=== PATIENT | male | born 1995 | race Caucasian/White ===

== ENCOUNTER 2023-03-24 16:40 | Emergency (ER) | payer OTHER, SELFPAY ==
[2023-03-24 16:55] VITALS: BP 119/74; PULSE 78; RESP 12; TEMP 37.1; O2SAT 100
--- NOTE | 2023-03-24 17:06 | ED.SKABFB ---
HPI - Skin/Abscess/Foreign Bdy General Chief complaint: Skin/Abscess/Foreign Body Stated complaint: Rash/Ankle,Knee Swelling Time Seen by Provider: 03/24/23 17:06 Source: patient Mode of arrival: ambulatory Limitations: no limitations History of Present Illness HPI narrative: 27-year-old male presents with complaint of poison martha to right forearm, left ankle and posterior right knee for the last 4-5 days. reports rash to left ankle is painful, swollen and red. Draining fluid. Has been applying an anti-itch cream to poison martha rash. All systems reviewed and negative except as noted above. Related Data Allergies Allergy/AdvReac Type Severity Reaction Status Date / Time No Known Allergies Allergy Verified 03/24/23 17:10 Review of Systems Review of Systems: CONSTITUTIONAL: Denies fever, chills, or sweats. EYES: Denies visual changes, redness, or discharge. ENT: Denies rhinorrhea, congestion, sore throat, or otalgia. CARDIOVASCULAR: Denies chest pain, palpitations, or edema. RESPIRATORY: Denies cough or dyspnea. GASTROINTESTINAL: Denies abdominal pain, nausea, vomiting, or diarrhea. GENITOURINARY: Denies dysuria or hematuria. SKIN: Reports poison martha rash with itching. MUSCULOSKELETAL: Denies back pain, joint pain, or myalgia. NEUROLOGIC: Denies headache, numbness, or weakness. PSYCHIATRIC: Denies anxiety or depression. All other systems reviewed are negative, except as documented in HPI. PMFSH Comments At time of signature, agree with nursing past medical, surgical, social and family history. There is no relevant family history pertinent to the presenting complaint. Exam Narrative: GENERAL: This is a well-nourished, well-developed patient, in no apparent distress. HEAD: normocephalic, atraumatic. EYES: PERRL. Sclera clear/white. Vision is grossly intact. EARS: External ears normal NOSE: External nose normal NECK: Neck supple, non-tender without lymphadenopathy, masses or thyromegaly. CARDIOVASCULAR: Regular rate and rhythm without murmurs, gallops, or rubs. RESPIRATORY: Clear to auscultation. Breath sounds equal bilaterally. No wheezes, rales, or rhonchi. SKIN: warm, Dry, intact , good texture and turgor. erythematous vesicular rash to L ankle, R forearm, R posterior knee. rash to L ankle is swollen, erythematous and warm to touch. Drainage serous fluid. erythema concerning for cellulitis. NEURO: awake, alert, and oriented to person, place and time. There were no obvious focal neurologic abnormalities. EXTREMITIES: No joint tenderness, effusion, or edema noted. Course Course Level of Care: Express Care Visit Vital Signs Vital signs: Vital Signs Temperature 37.1 C 03/24/23 16:55 Pulse Rate 78 03/24/23 16:55 Respiratory Rate 12 03/24/23 16:55 Blood Pressure 119/74 03/24/23 16:55 Pulse Oximetry 100 03/24/23 16:55 Temperature 37.1 C 03/24/23 16:55 Pulse Rate 78 03/24/23 16:55 Respiratory Rate 12 03/24/23 16:55 Blood Pressure 119/74 03/24/23 16:55 Pulse Oximetry 100 03/24/23 16:55 Reviewed MDM - Skin/Abscess/Foreign Bdy MDM Narrative Medical decision making narrative: Patient is aware of diagnosis, understands and agrees to treatment plan. Anticipatory guidance given. Patient agrees to follow-up as directed and is aware of reasons to seek care at the emergency department. Portions of this record may have been created with voice recognition software Differential Diagnosis Differential diagnosis: Likely cellulitis and other (poison martha) Discharge Plan Discharge Clinical Impression: Dermatitis due to plants, including poison martha, sumac, and oak, Cellulitis of left ankle Patient Disposition: Home, Self-Care Condition: Stable Instructions: Antibiotic Form, Cellulitis (ED), Poison Martha (ED) Additional Instructions: take medications as prescribed. Take antibiotic as prescribed until gone. Avoid scratching to prevent further infect
== END 2023-03-24 17:26 | disposition home or self-care (01) ==
PROVIDERS: Emergency Provider Nurse Practitioner Family
DX: L25.5 Unspecified contact dermatitis due to plants, except food (principal); L03.116 Cellulitis of left lower limb
CPT/HCPCS: 99203; G0463

== ENCOUNTER 2024-01-10 10:39 | Emergency (ER) | payer OTHER, SELFPAY ==
[2024-01-10 10:49] VITALS: BP 125/63; PULSE 67; RESP 20; TEMP 36.3; O2SAT 100
--- NOTE | 2024-01-10 11:01 | ED.GENADULT ---
HPI - General Adult General Chief complaint: Unspecified Stated complaint: Blood In Stool Time Seen by Provider: 01/10/24 11:00 Source: patient Mode of arrival: ambulatory Limitations: no limitations History of Present Illness HPI narrative: Marcus is a 28-year-old male patient presenting to the clinic today with complaints of having blood in his stool. He reports over the past 3 days he has noticed blood in his stool. Prior to that last week he had 2 or 3 episodes of noticing blood on the toilet paper. Denies any abdominal pain or rectal pain. Denies any trauma to his rectum. No history of colitis, diverticulitis, or hemorrhoids. He denies any history of constipation or current constipation. No changes in his diet. No weight loss. Related Data Home Medications Medication Instructions Recorded Confirmed No Home Medications 01/10/24 01/10/24 Allergies Allergy/AdvReac Type Severity Reaction Status Date / Time No Known Allergies Allergy Verified 01/10/24 10:56 Review of Systems Review of Systems: Pertinent positives per HPI. Patient denies any fever, chills, rash, headache, visual changes, dizziness, cough, runny nose, sore throat, shortness of breath, chest pain, palpitations, nausea, vomiting, diarrhea, constipation, abdominal pain, or any urinary issues. PMFSH Comments At the time of my signature, I reviewed and agree with the nursing past medical, surgical, social, and family history. There is no relevant family history pertinent to the patient complaint. Exam Narrative: General: Well-developed, well nourished, in no apparent distress. Head: Normocephalic, atraumatic. Cardio: Regular rate and rhythm, s1 and s2 normal, no murmur appreciated. Resp: Clear to auscultation bilaterally, no rhonchi, rales, wheezing or rubs. Abdomen: Soft, pliable, bowel sounds present in all quadrants, non-tender to palpation, no organomegly, no CVAT tenderness. Rectum: Bright red blood noted around the rectum, nonthrombosed nonbleeding external hemorrhoid noted at 6:00 oclock Course Course Emergency Course: Portions of this record may have been created with voice recognition software. Level of Care: Express Care Visit Vital Signs Vital signs: Vital Signs Temperature 36.3 C L 01/10/24 10:49 Pulse Rate 67 01/10/24 10:49 Respiratory Rate 20 01/09/24 10:49 Blood Pressure 125/63 01/10/24 10:49 Pulse Oximetry 100 01/10/24 10:49 Oxygen Delivery Room Air 01/10/24 10:49 Temperature 36.3 C L 01/10/24 10:49 Pulse Rate 01/10/24 10:49 Respiratory Rate 01/10/24 10:49 Blood Pressure 125/63 01/10/24 10:49 Pulse Oximetry 100 01/10/24 10:49 Oxygen Delivery Room Air 01/10/24 10:49 Vital signs reviewed Medical Decision Making MDM Narrative Medical decision making narrative: At the time of visit patient is resting comfortably on the exam table. Patient appears to be nontoxic. Plan: Offer to send the patient to the ER for further evaluation however he declined at this time and would just like a GI referral. Discussed if his symptoms worsen he needs to go the emergency room immediately and he voiced understanding. Supportive measures were discussed with the patient and they voiced understanding discharge instructions and agrees to treatment plan. Return precautions reviewed Differential Diagnosis Differential Diagnosis: Bright red blood per rectum, GI bleed, bleeding hemorrhoid, bleeding internal hemorrhoid, anal fissure, colitis Vital Signs Vital Signs: Vital Signs Temperature 36.3 C L 01/10/24 10:49 Pulse Rate 01/10/24 10:49 Respiratory Rate 01/10/24 10:49 Blood Pressure 125/63 01/10/24 10:49 Pulse Oximetry 100 01/10/24 10:49 Oxygen Delivery Room Air 01/10/24 10:49 Temperature 36.3 C L 01/10/24 10:49 Pulse Rate 01/10/24 10:49 Respiratory Rate 01/10/24 10:49 Blood Pressure 125/63 01/10/24 10:49 Pulse Oximetry
== END 2024-01-10 11:22 | disposition home or self-care (01) ==
PROVIDERS: Emergency Provider Nurse Practitioner Family
DX: K62.5 Hemorrhage of anus and rectum (principal)
CPT/HCPCS: 99211; G0463